=== PATIENT | female | born 2000 | race Two or more races ===

== ENCOUNTER 2023-11-11 09:59 | Inpatient (IN) | payer MEDICAID, OTHER ==
[~2023-11-11] VITALS: Ht 167.6 cm; Wt 50.5 kg
[2023-11-11 10:49] LABS: Urine Bacteria FEW /hpf (None Seen); Urine Blood 2+ /uL (Negative); Urine Color Yellow (Yellow); Urine Mucus FEW (None Seen); Urine Protein, UAD 1+ (Negative); Urine Specific Gravity 1.027 (1.001-1.035); Urine Urobilinogen Normal (Negative); Urine WBC 372 /hpf (0 - 5)
[2023-11-11 10:52] LABS: Urine Clarity Cloudy (Clear)
[2023-11-11] MEDS: cefTRIAXone 1GM/50ML D5W 50 ML IV ONE ×2 (12:10→12:12)
[2023-11-11] MEDS: SODIUM CHLORIDE 0.9% 500 ML IV ONE (12:12)
[2023-11-11 12:14] LABS: Hematocrit 36.4 % (36.0-46.0); Hemoglobin 12.3 g/dL (12.2-16.2); Mean Corpuscular Hemoglobin 28.4 pg (28.0-32.0); Mean Corpuscular Hgb Conc. 33.8 g/dL (32.0-36.0); Mean Corpuscular Volume 83.9 fL (80.0-100.0); Platelet Count (auto) 413 10^3/uL (140-450); Red Blood Cells 4.34 10^6/uL (4.0-5.20); Red Cell Distribution Width 14.7 % (11.8-14.3); White Blood Cell 10.3 10^3/uL (4.4-10.8)
[2023-11-11 12:22] LABS: Basophils % (manual) 0 (0.0-2.0); Blast Cells 0; Metamyelocytes % 0; Myelocytes % 0; Promyelocytes % 0; Reactive Lymphocytes 0
[2023-11-11 12:28] LABS: Alanine Aminotransferase 17 U/L (7-40); Alkaline Phosphatase 51 U/L (46-116); Anion Gap 9 (5-15); Aspartate Aminotransferase 28 U/L (13-40); BUN/Creatinine Ratio 11.1 (10.0-20.0); Bilirubin, Total 0.5 mg/dL (0.2-1.0); Blood Urea Nitrogen 9 mg/dL (9-23); Calcium 9.9 mg/dL (8.7-10.4); Carbon Dioxide 27 mmol/L (20-30); Chloride 103 mmol/L (98-107); Glucose 84 mg/dL (74-106); Potassium 3.6 mmol/L (3.5-5.1); Sodium 139 mmol/L (136-145)
[2023-11-11 12:32] LABS: Beta HCG, Quantitative 0.2 mIU/mL (1.5-4.2)
[2023-11-11 12:45] LABS: Band Neutrophils % (manual) 1; Eosinophils % (manual) 1 (0-7); Lymphocytes % (manual) 21 (10.0-50.0)
[2023-11-11 12:46] LABS: Monocytes % (manual) 16 (0-12)
[2023-11-11 12:47] LABS: Platelet Estimate Adequate; RBC Morphology Normal
[2023-11-11 13:11] LABS: Amphetamine Screen, Urine Neg (NEGATIVE); Barbiturate Scree,Urine Neg (NEGATIVE); Benzodiazephine Screen, Urine Neg (NEGATIVE); Cannabinoid Screen, Urine Neg (NEGATIVE); Cocaine Screen, Urine Neg (NEGATIVE); Opiate Scree,Urine Neg (NEGATIVE); Phencyclidine Screen, Urine Neg (NEGATIVE)
[2023-11-11] MEDS ORDERED: ACETAMINOPHEN 325 MG TAB PO PRN ×2 (13:45→14:15)
[2023-11-11] MEDS ORDERED: ONDANSETRON HCL 4 MG/2 ML VIAL IV PRN ×2 (13:45→14:15)
[2023-11-11] MEDS ORDERED: MORPHINE SULFATE INJ 2 MG/ml SYRG IV PRN (13:45)
[2023-11-11] MEDS ORDERED: DOCUSATE SOD 100 MG CAP PO PRN ×2 (13:45→14:15)
[2023-11-11] MEDS ORDERED: HYDROcodone-ACET 5/325MG TAB PO PRN (13:45)
[2023-11-11] MEDS: SODIUM CHLORIDE 0.9% 1,000 ML IV SCH (13:45)
[2023-11-11] MEDS ORDERED: HYDROmorphone HCL 2 MG/ML VL/or syr IV PRN (14:15)
[2023-11-11] MEDS: SODIUM CHLOR 0.9% PF (SALINE LOCK) 10ML VIAL/SYR IV SCH (22:00)
[2023-11-12] MEDS: HYDROcodone-ACET 5/325MG TAB PO PRN (02:25)
[2023-11-12 03:38] LABS: Basophils # (auto) 0 10 ^3/uL (0-0.2); Basophils % (auto) 0.4 % (0.0-2.0); Eosinophils # (auto) 0.1 10 ^3/uL (0-0.8); Eosinophils % (auto) 1.5 % (0.0-7.0); Hematocrit 31.4 % (36.0-46.0); Hemoglobin 10.5 g/dL (12.2-16.2); Lymphocytes % (auto) 26.3 % (10.0-50.0); Mean Corpuscular Hemoglobin 28.3 pg (28.0-32.0); Mean Corpuscular Hgb Conc. 33.3 g/dL (32.0-36.0); Mean Corpuscular Volume 85.1 fL (80.0-100.0); Monocytes # (auto) 0.9 10 ^3/uL (0-1.3); Monocytes % (auto) 12.8 % (0.0-12.0); Neutrophils # (auto) 4.4 10 ^3/uL (1.6-8.6); Platelet Count (auto) 355 10^3/uL (140-450); Red Cell Distribution Width 14.5 % (11.8-14.3); White Blood Cell 7.4 10^3/uL (4.4-10.8)
[2023-11-12 03:51] LABS: Alanine Aminotransferase 10 U/L (7-40); Albumin 4.2 g/dL (3.2-4.8); Alkaline Phosphatase 44 U/L (46-116); Anion Gap 8 (5-15); Aspartate Aminotransferase 10 U/L (13-40); BUN/Creatinine Ratio 11.7 (10.0-20.0); Blood Urea Nitrogen 7 mg/dL (9-23); Carbon Dioxide 25 mmol/L (20-30); Chloride 107 mmol/L (98-107); Glucose 92 mg/dL (74-106); Potassium 3.3 mmol/L (3.5-5.1); Sodium 140 mmol/L (136-145)
[2023-11-12 03:52] LABS: Bilirubin, Total 0.3 mg/dL (0.2-1.0); Total Protein 6.8 g/dL (5.7-8.2)
[2023-11-12 08:00] VITALS: PULSE 90; RESP 16; O2SAT 99
[2023-11-12] MEDS: cefTRIAXone 1GM/50ML D5W 50 ML IV SCH (09:23)
[2023-11-12] MEDS ORDERED: ENOXAPARIN SOD 40 MG/0.4 ML SYRINGE SC SCH (10:00)
[2023-11-12 11:05] LABS: % Iron Saturation 4.1 % (15-50)
[2023-11-12] MEDS ORDERED: NITR-52 PO (13:54)
[2023-11-12 14:00] VITALS: BP 110/78; PULSE 74; RESP 16; TEMP 97.7; O2SAT 100
[2023-11-12] MEDS: POTASSIUM CHL 20 Meq TABLET PO ONE (14:07)
[2023-11-12] MEDS: FERROUS SULFATE 325mg EC TAB PO SCH (14:07)
[2023-11-12] MEDS: NITROFURANTOIN 100 mg CAP PO ONE (14:27)
[2023-11-12 18:07] LABS: Folate (Folic Acid) 13.76 ng/mL (>5.38)
== END 2023-11-12 17:00 | disposition home or self-care (01) | DRG 463 ==
LOC: ER 09:59 → EAST 14:13 → OVERFLOW 14:13 → EAST 11-12 16:24
PROVIDERS: ADMIT Internal Medicine Pulmonary Disease; ATTEND Surgery
DX: N39.0 Urinary tract infection, site not specified (principal); D50.9 Iron deficiency anemia, unspecified; E87.6 Hypokalemia; K59.00 Constipation, unspecified; F12.10 Cannabis abuse, uncomplicated
CPT/HCPCS: 36415; 74176; 76705; 80053; 80307; 81001; 82607; 82746; 83540; 83550; 83615; 83735; 84702; 85007; 85025; 85027; 85045; 87040; 87086; 87088; 87186; G0378